=== PATIENT | female | born 1970 | race Caucasian/White ===

== ENCOUNTER 2020-07-12 18:42 | Emergency (ER) | payer BC, SELFPAY ==
[2020-07-12 18:55] VITALS: BP 192/109; PULSE 75; RESP 17; TEMP 36.3; O2SAT 96; BMI 44.4
[2020-07-12 19:02] VITALS: BP 184/116; PULSE 74; RESP 18; TEMP 36.3; O2SAT 99
--- NOTE | 2020-07-12 19:06 | ECG_ITS ---
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: : 1970 Requested By: Solomon Branch Order Number: [id number] Ga MD: HOWIE PEREIRA Measurements Intervals [place] Rate: 80 P: 24 MA: 169 QRS: -11 QRSD: 98 T: 51 QT: 369 QTc: 428 Interpretive Statements SINUS RHYTHM POSSIBLE ANTERIOR MYOCARDIAL INFARCTION [30 ms Q WAVE IN V3/V4, OR R < 0.2 mV IN V4], OF INDETERMINATE AGE Compared to ECG 12/16/2014 13:00:56 Myocardial infarct finding now present Electronically Signed On 07-13-2020 20:21:19 CDT by HOWIE PEREIRA [id number]
--- NOTE | 2020-07-12 19:06 | XRR_ITS ---
PROCEDURE INFORMATION: Exam: XR Chest Exam date and time: 07/12/2020 7:11 PM Age: 50 years old Clinical indication: Pain; Left-sided; Additional info: Left sided cp x today, TECHNIQUE: Imaging protocol: XR of the chest. Views: 1 view. COMPARISON: CR Chest 1 [place] [id number] 12/16/2014 2:02 PM FINDINGS: The lungs are clear of infiltrate. There are no pleural effusions or pneumothorax. The heart size and pulmonary vascularity are normal. XR/XR chest 1V portable [id number] IMPRESSION: No active disease.
[2020-07-12 19:28] LABS: Basophils # 0.1 10^3/uL (0.0-0.1); Eosinophils # 0.1 10^3/uL (0.0-0.8); Eosinophils % 1.6 %; Hematocrit 42.9 % (37.0-47.0); Hemoglobin 14.7 g/dL (11.5-15.3); Lymphocytes # 1.8 10^3/uL (0.8-4.8); Mean Corpuscular HGB Conc 34.3 g/dL (30.0-36.0); Mean Corpuscular Hemoglobin 32.7 pg (28.0-34.0); Mean Corpuscular Volume 95.3 fL (81-99); Mean Platelet Volume 12.2 fL (7.4-10.4); Monocytes # 1.1 10^3/uL (0.2-0.9); Monocytes % 12.9 %; Neutrophils # 5.05 10^3/uL (1.8-7.7); Nucleated Red Blood Cells % 0 %; Platelet Count 191 10^3/cmm (130-400); Red Cell Distribution Width 11.4 % (12.1-15.1); White Blood Count 8.1 10^3/uL (4.0-10.0)
--- NOTE | 2020-07-12 19:47 | ED_ITS ---
HPI - Chest Pain General: Chief Complaint: Chest Pain Stated Complaint: Chest Pains Time Seen by Provider: 07/12/20 19:07 History of Present Illness: HPI narrative: 50-year-old female with no prior history of coronary disease. She has a recent diagnosis of hypertension which she has been treating with lisinopril with her primary care physician. She was on a trip to [place] and back today when she began to get left-sided chest pain radiating to her jaw and neck she describes it as an ache somewhat worsened by deep breath. She was nauseated at home, so she decided to come in. She has not had pain like this before MD complaint: chest pain Pertinent past history: other Onset (ago): hour(s) Timing of current episode: constant Prior episodes: No Onset: during rest Pain location: left chest Pain radiation: neck and jaw/teeth Severity: moderate Quality: tightness and aching Relieving factors: nothing Exacerbating factors: nothing Associated symptoms: Reports nausea; Deny abdominal pain, dyspnea, fever(s), palpitations or vomiting Review of Systems Const: Denies: fever(s) Eyes: Denies: change in vision ENMT: Denies: odynophagia or sinus pain Card: Reports: chest pain; Denies: palpitations, irregular heart rhythm, swelling of feet/ankles or dyspnea on exertion Resp: Denies: dyspnea, non-productive cough or wheezing GI: Reports: nausea; Denies: abdominal pain or vomiting : Denies: dysuria or hematuria Musc: Reports: neck pain; Denies: back pain Skin/Breast: Denies: rash or erythema Neuro: Denies: headache(s), dizziness or vertigo Psych: Denies: anxiety Physical Exam Const: GENERAL APPEARANCE: well developed ORIENTATION/CONSCIOUSNESS: Yes oriented to person, Yes oriented to place and Yes oriented to time HENMT: COMMON NORMALS: normocephalic, external ears normal and Normal external nose present HEAD & SCALP: normocephalic FACE & SINUS: normal facial exam NOSE: Normal external nose present and No nasal discharge present EXTERNAL EAR: Yes external ears normal Eye: COMMON NORMALS: Equal, round and reactive pupils present, EOMs intact bilaterally and conjunctivae normal EYELID: eyelids normal CONJUNCTIVA: Yes conjunctivae normal PUPIL: Yes Equal, round and reactive pupils present Neck/C-Spine: GENERAL: No tracheal deviation Chest: COMMONS NORMALS: normal inspection of the chest CHEST: No tenderness Resp: COMMON NORMALS: clear to auscultation bilaterally EFFORT & INSPECTION: No tachypneic, No respiratory distress, No retractions, No uses accessory muscles and No tracheal deviation AUSCULTATION: clear to auscu ltation bilaterally, no rhonchi, no wheezes and lung sounds not diminished Cardio: COMMON NORMALS: regular rate and regular rhythm RATE: regular rate RHYTHM: regular rhythm HEART SOUNDS: no murmurs PERIPHERAL PULSES: radial pulses present GI: INSPECTION: No abdominal distension AUSCULTATION: No Hyperactive bowel sounds present and No Hypoactive bowel sounds present PALPATION: No Guarding due to palpation present (GI) and No Rigid due to palpation PERCUSSION: no dullness to percussion and no tympanic to percussion Neuro: SENSORIUM/ORIENTATION: Yes oriented to person, Yes oriented to place and Yes oriented to time Psych: COMMON NORMALS: mental status grossly normal Skin: COMMON NORMALS: no rashes or lesions noted GENERAL SKIN EXAM: no rashes or lesions noted Course Vital Signs: Vital signs: Vital Signs Temperature 97.3 F L 07/12/20 19:02 Pulse Rate 69 07/12/20 22:17 Respiratory Rate 15 07/12/20 22:17 Blood Pressure 150/81 07/12/20 22:17 Pulse Oximetry 94 07/12/20 22:17 MDM - Chest Pain MDM Narrative: Medical decision making narrative: 50-year-old female hypertensive with chest discomfort. Pain was somewhat relieved with nitroglycerin, but more relieved with decrease in blood pressure. She is on 40 mg of lisinopril, which is not controlling her blood pressure at home. We will prescribe her metoprolol to fill should her blood pressure remain high. Her EKGs showed a normal sinus rhythm without axis change. There is no ST change. Troponin did not elevated 2 hours. Other laboratory is benign chest x-ray is negative. Lab Data: Labs: Lab Results 07/12/20 07/12/20 07/12/20 Range/Units 19:15 19:15 19:15 WBC 8.1 (4.0-10.0) 10^3/ uL RBC 4.50 (4.1-5.3) 10^6/u L Hgb 14.7 (11.5-15.3) g/dL Hct 42.9 (37.0-47.0) % MCV 95.3 (81-99) fL MCH 32.7 (28.0-34.0) pg MCHC 34.3 (30.0-36.0) g/dL RDW 11.4 L (12.1-15.1) % Plt Count 191 (130-400) 10^3/c mm MPV 12.2 H (7.4-10.4) fL Neut % (Auto) 62.0 % Lymph % (Auto) 22.0 % [place] % (Auto) 12.9 % Eos % (Auto) 1.6 % Baso % (Auto) 1.0 % Neut # (Auto) 5.05 (1.8-7.7) 10^3/u L Lymph # (Auto) 1.8 (0.8-4.8) 10^3/u L [place] # (Auto) 1.1 H (0.2-0.9) 10^3/u L Eos # (Auto) 0.1 (0.0-0.8) 10^3/u L Baso # (Auto) 0.1 (0.0-0.1) 10^3/u L Nucleated RBC % (a uto) 0 % Nucleated RBCs # 0.0 /100WBC D-Dimer 0.41 (0-0.59) ug/mIFE U Sodium 138 (136-145) mmol/L Potassium 4.4 (3.5-5.1) mmol/L Chloride 103 (98-107) mmol/L Carbon Dioxide 22 (22-29) mmol/L Anion Gap 17.4 (5-19) BUN 13 (6-20) mg/dL Creatinine 0.7 (0.5-0.9) mg/dL GFR Calculation 89.3 L (90-130) mL/min Glucose 193 H (65-115) mg/dL Calculated Osmolal ity 291 (285-295) mOsm/k g Calcium 9.4 (8.5-10.5) mg/dL Total Bilirubin 0.5 (0.15-1.2) mg/dL AST 34 H (0-32) U/L ALT 56 H (0-33) U/L Alkaline Phosphata se 128 H (35-105) IU/L Troponin T Baselin e (0-10) ng/L Troponin T 120 Min latrice (0-10) ng/L Delta Troponin T (0-10) ABS# NT-Pro-B Natriuret Pep 88 (0-125) pg/mL Total Protein 6.8 (6.6-8.7) g/dL Albumin 4.1 (3.5-5.2) g/dL Globulin 2.7 (1.3-4.6) g/dL 07/12/20 07/12/20 Range/Units 19:15 21:15 WBC (4.0-10.0) 10^3/ uL RBC (4.1-5.3) 10^6/u L Hgb (11.5-15.3) g/dL Hct (37.0-47.0) % MCV (81-99) fL MCH (28.0-34.0) pg MCHC (30.0-36.0) g/dL RDW (12.1-15.1) % Plt Count (130-400) 10^3/c mm MPV (7.4-10.4) fL Neut % (Auto) % Lymph % (Auto) % [place] % (Auto) % Eos % (Auto) % Baso % (Auto) % Neut # (Auto) (1.8-7.7) 10^3/u L Lymph # (Auto) (0.8-4.8) 10^3/u L [place] # (Auto) (0.2-0.9) 10^3/u L Eos # (Auto) (0.0-0.8) 10^3/u L Baso # (Auto) (0.0-0.1) 10^3/u L Nucleated RBC % (a uto) % Nucleated RBCs # /100WBC D-Dimer (0-0.59) ug/mIFE U Sodium (136-145) mmol/L Potassium (3.5-5.1) mmol/L Chloride (98-107) mmol/L Carbon Dioxide (22-29) mmol/L Anion Gap (5-19) BUN (6-20) mg/dL Creatinine (0.5-0.9) mg/dL GFR Calculation (90-130) mL/min Glucose (65-115) mg/dL Calculated Osmolal ity (285-295) mOsm/k g Calcium (8.5-10.5) mg/dL Total Bilirubin (0.15-1.2) mg/dL AST (0-32) U/L ALT (0-33) U/L Alkaline Phosphata se (35-105) IU/L Troponin T Baselin e 6 (0-10) ng/L Troponin T 120 Min latrice 6.00 (0-10) ng/L Delta Troponin T 0 (0-10) ABS# NT-Pro-B Natriuret Pep (0-125) pg/mL Total Protein (6.6-8.7) g/dL Albumin (3.5-5.2) g/dL Globulin (1.3-4.6) g/dL Discharge Plan Discharge Patient Disposition: Home Clinical Impression: Chest pain Qualifiers: Chest pain type: unspecified Qualified Code(s): R07.9 - Chest pain, unspecified Hypertension Qualifiers: Hypertension type: essential hypertension Qualified Code(s): I10 - Essential (primary) hypertension Condition: Stable Prescriptions: New metoprolol tartrate 25 mg tablet 25 mg PO BID Qty: 60 RF: 0 No Action lisinopril 40 mg tablet 40 mg PO DAILY@0730 RF: 0 Aleve 220 mg Tablet 220 - 440 mg PO Q4H PRN (Reason: Pain) RF: 0 Discharge Orders: Discharge ED (Routine); Ordered 07/12/20 Ordered By: Solomon Oneill Patient Instructions: Chest Pain (ED), Hypertension (ED) Activity Restrictions/Additional Instructions: Turn for return of chest pain, development of shortness of breath, fever, cough, other concerning symptoms. Check your blood pressure twice daily, if it remains greater than 150/90, you may start the medication you were prescribed tonight. see your doctor as scheduled next week Coding Level of Care Code ED [employer] Exam Comprehensive
[2020-07-12 19:48] LABS: D Dimer 0.41 ug/mIFEU (0-0.59)
[2020-07-12 20:09] LABS: Troponin(5th) Baseline 6 ng/L (0-10)
[2020-07-12 20:17] LABS: Alanine Aminotransferase 56 U/L (0-33); Albumin Level 4.1 g/dL (3.5-5.2); Alkaline Phosphatase 128 IU/L (35-105); Anion Gap 17.4 (5-19); Aspartate Amino Transferase 34 U/L (0-32); Blood Urea Nitrogen 13 mg/dL (6-20); Calcium 9.4 mg/dL (8.5-10.5); Carbon Dioxide 22 mmol/L (22-29); Chloride 103 mmol/L (98-107); Creatinine Clr Calc Pharmacy 151.0402; Globulin 2.7 g/dL (1.3-4.6); Glomerular Filtration Rate 89.3 mL/min (90-130); Glucose 193 mg/dL (65-115); NT Pro B Type Natriuretic Pept 88 pg/mL (0-125); Osmolality Calculated 291 mOsm/kg (285-295); Potassium 4.4 mmol/L (3.5-5.1); Sodium 138 mmol/L (136-145); Total Bilirubin 0.5 mg/dL (0.15-1.2); Total Protein 6.8 g/dL (6.6-8.7)
[2020-07-12] MEDS: nitroglycerin 0.4 mg sublingual Tablet SUBLINGUAL (20:32)
[2020-07-12] MEDS: metoprolol tartrate 1 mg/1 mL SDV 5 mL 5 MG IV (20:32)
[2020-07-12] MEDS: aspirin 325 mg Tablet PO (20:32)
[2020-07-12] MEDS: ondansetron 2 mg/ML SDV 2 mL 4 MG IVP (20:32)
--- NOTE | 2020-07-12 21:06 | ECG_ITS ---
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: : 1970 Requested By: Solomon Branch Order Number: [id number] Ga MD: HOWIE PEREIRA Measurements Intervals [place] Rate: 71 P: 19 [place]: 167 QRS: 19 QRSD: 98 T: 21 QT: 382 QTc: 417 Interpretive Statements SINUS RHYTHM POSSIBLE ANTERIOR MYOCARDIAL INFARCTION [30 ms Q WAVE IN V3/V4, OR R < 0.2 mV IN V4], OF INDETERMINATE AGE WARNING: DATA QUALITY MAY AFFECT INTERPRETATION Compared to ECG 12/16/2014 13:00:56 Myocardial infarct finding now present Electronically Signed On 07-13-2020 20:24:35 CDT by HOWIE PEREIRA [id number]
[2020-07-12 21:26] VITALS: BP 132/81; PULSE 60; RESP 16; O2SAT 97
[2020-07-12 21:40] VITALS: BP 146/78; PULSE 64; RESP 16; O2SAT 99
[2020-07-12 22:07] LABS: Troponin 5 2HR Delta 0 ABS# (0-10)
[2020-07-12 22:17] VITALS: BP 150/81; PULSE 69; RESP 15; O2SAT 94
== END 2020-07-12 22:56 | disposition home or self-care (01) ==
PROVIDERS: Emergency Provider Emergency Medicine
DX: R07.9 Chest pain, unspecified (principal); I10 Essential (primary) hypertension
CPT/HCPCS: 71045; 80053; 83880; 84484; 85025; 85378; 93005; 96374; 96375; 99284; J2405; J3490

== ENCOUNTER → 2021-09-08 07:22 | Outpatient (BNVA) | payer BC, SELFPAY | PROVIDERS: PCP Family Medicine; Visit Provider Family Medicine | DX: E07.9 Disorder of thyroid, unspecified (principal); E89.0 Postprocedural hypothyroidism; I10 Essential (primary) hypertension | CPT/HCPCS: 80053; 84439; 84443; 84480; 85025 ==

== ENCOUNTER → 2022-06-05 09:29 | Outpatient (BNVA) | payer BC, SELFPAY | PROVIDERS: PCP Family Medicine; Visit Provider Family Medicine | DX: E07.9 Disorder of thyroid, unspecified (principal); I10 Essential (primary) hypertension; R73.9 Hyperglycemia, unspecified | CPT/HCPCS: 80053; 80061; 83036; 84443 ==

== ENCOUNTER → 2022-09-23 09:48 | Outpatient (BNVA) | payer BC, SELFPAY | PROVIDERS: PCP Family Medicine; Visit Provider Family Medicine | DX: E07.9 Disorder of thyroid, unspecified (principal); E11.9 Type 2 diabetes mellitus without complications; I10 Essential (primary) hypertension; E03.9 Hypothyroidism, unspecified; Z13.6 Encounter for screening for cardiovascular disorders; R73.9 Hyperglycemia, unspecified | CPT/HCPCS: 80053; 80061; 83036; 84443 ==

== ENCOUNTER → 2023-02-25 08:45 | Outpatient (BNVA) | payer BC, SELFPAY | PROVIDERS: PCP Family Medicine; Visit Provider Family Medicine | DX: E11.9 Type 2 diabetes mellitus without complications (principal); E07.9 Disorder of thyroid, unspecified; I10 Essential (primary) hypertension; Z13.6 Encounter for screening for cardiovascular disorders; E03.9 Hypothyroidism, unspecified | CPT/HCPCS: 80053; 80061; 83036; 84443 ==

== ENCOUNTER → 2024-10-05 08:28 | Outpatient (BNVA) | payer BC, SELFPAY | PROVIDERS: PCP Family Medicine; Visit Provider Family Medicine | DX: R79.89 Other specified abnormal findings of blood chemistry (principal); N18.9 Chronic kidney disease, unspecified; I10 Essential (primary) hypertension; Z98.84 Bariatric surgery status | CPT/HCPCS: 80053; 82306; 82607; 83550; 84425; 85025 ==

== ENCOUNTER 2024-11-21 11:06 | Outpatient (CLI) | payer BC, SELFPAY ==
[2024-11-21 12:20] LABS: Estmated Average Glucose 103; Hemoglobin A1C 5.2 % (4.0-6.0)
[2024-11-21 12:24] LABS: Hematocrit 42.6 % (36-47); Hemoglobin 14.80 g/dL (11.27-16.99); Mean Corpuscular HGB Conc 34.7 g/dL (30-55); Mean Corpuscular Hemoglobin 32.0 pg (27-33); Mean Corpuscular Volume 92.0 fl (85-98); Nucleated Red Blood Cells % 0 %; Platelet Count 131 10^3/cmm (157-399); Red Blood Count 4.63 10^6/uL (3.85-5.65); White Blood Count 4.44 10^3/uL (3.29-11.43)
[2024-11-21 12:39] LABS: Calcium 9.5 mg/dL (8.5-10.5)
[2024-11-21 12:46] LABS: Slide Review Slide Review Perform
[2024-11-21 12:50] LABS: Alanine Aminotransferase 28 U/L (0-33); Albumin Level 3.9 g/dL (3.5-5.2); Alkaline Phosphatase 96 U/L (35-105); Anion Gap 17.9 (5-19); Aspartate Amino Transferase 24 U/L (0-32); Blood Urea Nitrogen 15 mg/dL (6-20); Calcium 9.5 mg/dL (8.5-10.5); Carbon Dioxide 22 mmol/L (22-29); Chloride 106 mmol/L (98-107); Cholesterol 206 mg/dL (0-200); Globulin 3.0 g/dL (1.3-4.6); Glucose 102 mg/dL (65-115); HDL Cholesterol 51 mg/dL (60-100); Iron 80 ug/dL (37-145); Osmolality Calculated 295 mOsm/kg (285-295); Potassium 3.9 mmol/L (3.5-5.1); Sodium 142 mmol/L (136-145); Thyroid Stimulating Hormone 3.56 uIU/mL (0.27-4.20); Total Iron Binding Capacity 241 mcg/dl; Total Protein 6.9 g/dL (6.6-8.7); Triglycerides 114 mg/dL (0-150); Unsaturated Iron Binding 161 ug/dL (112-347); VLDL Cholestrol Calculation 23 mg/dL (0-30)
== END 2024-11-21 11:07 | disposition home or self-care (01) ==
PROVIDERS: PCP Family Medicine; Visit Provider Family Medicine
DX: Z98.84 Bariatric surgery status (principal); I10 Essential (primary) hypertension; E11.9 Type 2 diabetes mellitus without complications; E07.9 Disorder of thyroid, unspecified; E03.9 Hypothyroidism, unspecified
CPT/HCPCS: 36415; 80053; 80061; 82306; 82310; 83036; 83540; 83550; 83970; 84425; 84443; 84446; 84590; 84597; 85025